=== PATIENT | male | born 1985 | race Caucasian/White ===

== ENCOUNTER 2017-05-17 11:40 | Emergency (ER) | payer OTHER ==
[~2017-05-17] VITALS: Ht 193 cm; Wt 124.9 kg
[~2017-05-17 11:40] MED LIST: ALBUAER19 INH; CHOL100027 PO; FLM4 PO; NIZA300C PO; OMEGCAP2 PO; ONDA4TAB7 SL; TRD10 PO; ULT50X PO; VITACAP26 PO
[2017-05-17 11:42] VITALS: Ht 193 cm; Wt 124.9 kg
[2017-05-17] MEDS ORDERED: VNTHFA/IN INH (12:26)
[2017-05-17] MEDS ORDERED: LISI10TA PO ×2 (12:26→12:27)
[2017-05-17] MEDS ORDERED: PRLSR20 PO (12:26)
[2017-05-17] MEDS ORDERED: ATOR-54 PO (12:26)
[2017-05-17] MEDS ORDERED: BUPR-79 PO (12:26)
[2017-05-17] MEDS ORDERED: MONT1TAB3 PO (12:27)
[2017-05-17] MEDS ORDERED: ATOR-24 PO (12:27)
[2017-05-17] MEDS ORDERED: MOME200A INH (12:27)
[2017-05-17] MEDS ORDERED: DiphenhydrAMINE HCL 50 MG/ML VIAL IV STA (13:14)
[2017-05-17] MEDS ORDERED: SODIUM CHLORIDE 0.9% 1000ML 1,000 ML IV STA (13:14)
[2017-05-17] MEDS ORDERED: PROCHLORPERAZINE 5 MG/ML 2 ML VIAL IV STA (13:14)
--- NOTE | 2017-05-17 13:20 | EMERGENCY ROOM VISIT NOTE ---
History First contact with patient: 13:04 Chief Complaint: HEADACHE Stated Complaint: MICHELE, NAUSEA, LIGHTHEADED History of Present Illness The patient is a 31 year old male who presents to the Emergency Room with complaints of headache. The patient developed a headache 1 week ago. The patient's states she noticed he has been stuttering intermittently for the last 3 days. The patient reports pain in the left side of the head, left side of the neck and occasional tingling in the left arm. He rates his discomfort a 2/10. He admits to nausea. He denies any fevers or chills. He denies any neck stiffness. Denies any pain in his chest or trouble breathing. He denies any abdominal pain or vomiting. The patient has a history of migraines but states this feels different. He does have history of hypertension and hyperlipidemia. He denies any other extremity numbness, tingling or weakness. Review of Systems A 10 system review of systems was completed with positives and pertinent negatives listed in the HPI. Past Medical/Surgical History Medical Problems: (1) Asthma (2) Bronchitis (3) HTN (hypertension) (4) PNA (pneumonia) Surgical Problems: (1) H/O knee surgery Family History FH: heart disease FH: lung disease FHx: cancer Hypertension Social History Smoking Status: Never Smoker Alcohol Use: none Drug Use: none Marital Status: Housing Status: lives with family Occupation Status: employed Current/Historical Medications Scheduled Atorvastatin (Lipitor), 40 MG PO HS Bupropion (Wellbutrin Sr), 150 MG PO BID Cholecalciferol (Vitamin D 1000 Unit), 1,000 INTER.UNIT PO DAILY Lisinopril (Prinivil), 10 MG PO DAILY Mometasone Furoate-Formoterol (Dulera 200/5 Mcg), 2 PUFFS INH BID Montelukast Sodium (Singulair), 10 MG PO HS Omeprazole (Prilosec), 20 MG PO DAILY Scheduled PRN Albuterol Hfa (Ventolin Hfa), 2-4 PUFFS INH Q6H PRN for SOB/Wheezing Allergies Coded Allergies: No Known Allergies (Unverified , 05/17/17) Physical Exam Vital Signs Date Time Temp Pulse Resp B/P (MAP) Pulse Ox O2 Delivery O2 Flow Rate FiO2 05/17/17 15:23 36.5 66 18 140/88 98 05/17/17 15:21 66 18 140/88 98 Room Air 05/17/17 13:54 90 136/90 97 Room Air 05/17/17 12:08 147/89 05/17/17 11:42 36.5 107 18 137/93 94 Room Air Physical Exam VITALS: Vitals are noted on the nurse's note and reviewed by myself. Vital signs stable. The patient is afebrile. GENERAL: This is a 31-year-old male, in no acute distress, nondiaphoretic, well- developed well-nourished. SKIN: The skin was without rashes, erythema, edema, or bruising. There is no tenting of the skin. Capillary reflex less than 2 seconds. HEAD: Normocephalic atraumatic. EARS: External auditory canals clear, tympanic membranes pearly iniguez without erythema or effusion bilaterally. EYES: Pupils equal round and reactive to light and accommodation. Conjunctivae without injection, sclerae without icterus. Extraocular movements intact. NOSE: Patent, turbinates without inflammation or discharge. No sinus tenderness. MOUTH: Mucous membranes moist. Tonsils are not enlarged. Pharynx without erythema or exudate. Uvula midline. Airway patent. Tongue does not deviate. NECK: Supple without nuchal rigidity. No lymphadenopathy. No thyromegaly. Cervical spine is nontender. Mild tenderness to palpation to the left paraspinous muscles. No JVD. HEART: Regular rate and rhythm without murmurs gallops or rubs. LUNGS: Clear to auscultation bilaterally without wheezes, rales or rhonchi. No retractions or accessory muscle use. ABDOMEN: Positive bowel sounds x 4. Soft, nontender, without masses or organomegaly. MUSCULOSKELETAL: No muscle atrophy, erythema, or edema noted. Full range of motion without joint tenderness in all extremities. No tenderness to palpation. Normal gait. Strength 5/5 throughout. NEURO: Patient was alert and oriented to person place and time. Normal sensation to light and sharp touch. Deep tendon reflexes 2+ throughout. Cranial nerves II through XII grossly intact. Negative pronator drift. Heel-to -rothman testing and [id number]-ny-[id number] testing intact. No focal neurological deficits. Medical Decision & Procedures ER Provider Diagnostic Interpretation: CERVICAL SPINE CT CT DOSE: 551.61 mGycm HISTORY: headache, left side neck pain, left arm pain TECHNIQUE: Multiaxial CT images of the cervical spine were performed and reformatted in the sagittal and coronal plane without the use of contrast. COMPARISON: None. FINDINGS: No fractures. No subluxation. Prevertebral soft tissues and the C1-C2 interval are intact. No pneumothorax. No disc space narrowing. No central canal narrowing by CT technique. Levoscoliosis of the thoracic spine. IMPRESSION: No fractures within the cervical spine. HEAD CT NONCONTRAST CT DOSE: 788.63 mGycm HISTORY: Headache headache TECHNIQUE: Multiaxial CT images of the head were performed without the use of intravenous contrast. Comparison: None. Findings: The paranasal sinuses and mastoid air cells are clear. The calvarium and skull base are intact. The ventricles and sulci are within normal limits. There is no mass, hematoma, midline shift, or acute infarct. Impression: No acute intracranial abnormality. Laboratory Results 05/17/17 13:45 Red Blood Count 5.22, Mean Corpuscular Volume 86.4, Mean Corpuscular Hemoglobin 30.1, Mean Corpuscular Hemoglobin Concent 34.8, Mean Platelet Volume 9.7, Neutrophils (%) (Auto) 66.0, Lymphocytes (%) (Auto) 22.1, Monocytes (%) (Auto) 10.4, Eosinophils (%) (Auto) 0.8, Basophils (%) (Auto) 0.3, Neutrophils # (Auto ) 6.82, Lymphocytes # (Auto) 2.28, Monocytes # (Auto) 1.07, Eosinophils # (Auto ) 0.08, Basophils # (Auto) 0.03 05/17/17 13:45 Test 05/17/17 13:45 05/17/17 13:56 White Blood Count 10.32 K/uL (4.8-10.8) Red Blood Count 5.22 M/uL (4.7-6.1) Hemoglobin 15.7 g/dL (14.0-18.0) Hematocrit 45.1 % (42-52) Mean Corpuscular Volume 86.4 fL (80-100) Mean Corpuscular Hemoglobin 30.1 pg (25-34) Mean Corpuscular Hemoglobin Concent 34.8 g/dl (32-36) Platelet Count 252 K/uL (130-400) Mean Platelet Volume 9.7 fL (7.4-10.4) Neutrophils (%) (Auto) 66.0 % Lymphocytes (%) (Auto) 22.1 % Monocytes (%) (Auto) 10.4 % Eosinophils (%) (Auto) 0.8 % Basophils (%) (Auto) 0.3 % Neutrophils # (Auto) 6.82 K/uL (1.4-6.5) Lymphocytes # (Auto) 2.28 K/uL (1.2-3.4) Monocytes # (Auto) 1.07 K/uL (0.11-0.59) Eosinophils # (Auto) 0.08 K/uL (0-0.5) Basophils # (Auto) 0.03 K/uL (0-0.2) RDW Standard Deviation 41.6 fL (36.4-46.3) RDW Coefficient of Variation 13.1 % (11.5-14.5) Immature Granulocyte % (Auto) 0.4 % Immature Granulocyte # (Auto) 0.04 K/uL (0.00-0.02) Prothrombin Time 10.8 SECONDS (9.0-12.0) Prothromb Time International Ratio 1.0 (0.9-1.1) Activated Partial Thromboplast Time 25.5 SECONDS (21.0-31.0) Partial Thromboplastin Ratio 1.0 Anion Gap 6.0 mmol/L (3-11) Est Creatinine Clear Calc Drug Dose 129.9 ml/min Estimated GFR () 93.5 Estimated GFR (Non- 80.7 BUN/Creatinine Ratio 9.3 (10-20) Calcium Level 8.7 mg/dl (8.5-10.1) Total Bilirubin 0.5 mg/dl (0.2-1) Aspartate Amino Transf (AST/SGOT) 13 U/L (15-37) Alanine Aminotransferase (ALT/SGPT) 28 U/L (12-78) Alkaline Phosphatase 130 U/L (45-117) Troponin I < 0.015 ng/ml (0-0.045) Total Protein 6.7 gm/dl (6.4-8.2) Albumin 3.7 gm/dl (3.4-5.0) Globulin 3.0 gm/dl (2.5-4.0) Albumin/Globulin Ratio 1.2 (0.9-2) Urine Color DK YELLOW Urine Appearance CLOUDY (CLEAR) Urine pH 5.0 (4.5-7.5) Urine Specific [place] 1.030 (1.000-1.030) Urine Protein NEG (NEG) Urine Glucose (UA) NEG (NEG) Urine Ketones TRACE (NEG) Urine Occult Blood NEG (NEG) Urine Nitrite NEG (NEG) Urine Bilirubin NEG (NEG) Urine Urobilinogen NEG (NEG) Urine Leukocyte Esterase NEG (NEG) Urine WBC (Auto) 1-5 /hpf (0-5) Urine RBC (Auto) 0-4 /hpf (0-4) Urine Hyaline Casts (Auto) 1-5 /lpf (0-5) Urine Epithelial Cells (Auto) 5-10 /lpf (0-5) Urine Bacteria (Auto) NEG (NEG) Medications Administered Medications (Trade) Dose Ordered Sig/Kevin Route Start Time Stop Time Status Last Admin Dose Admin Sodium Chloride 1,000 ml @ 999 mls/hr Q1H1M STAT IV 05/17/17 13:14 05/17/17 14:14 DC 05/17/17 13:14 999 MLS/HR Prochlorperazine Edisylate (Compazine Inj) 10 mg NOW STAT IV 05/17/17 13:14 05/17/17 13:17 DC 05/17/17 13:52 10 MG Procedure The patient was monitored on a quality assurance monitor body. They maintained a normal sinus rhythm without ectopy. ECG Indication: nausea Rate (beats per minute): 68 Rhythm: normal sinus Findings: no acute ischemic change Comparison ECG Date: no prior available ED Course The patient was seen and examined. Previous visits were reviewed. The patient does not have a fever or leukocytosis. He does not have any significant electrolyte abnormalities. Troponin is not elevated. INR is 1.0. Urinalysis is negative. CT scan of the brain and cervical spine did not reveal any acute abnormality The patient was hydrated with normal saline. He was given 10 mg IV Compazine and 25 mg IV Benadryl. His pain resolved. The patient has a history of migraines. This one has been more persistent. The patient's stated he had episodes of stuttering 3 days ago. That has resolved. The patient has not had any fevers, leukocytosis, neck stiffness or nuchal rigidity to suggest meningitis. He does have some pain on the paraspinous muscles on the left side of the neck and some tingling in the left arm. This could represent a cervical radiculopathy and possibly tension headache. There is no acute abnormality on CT imaging. He does not have any neurologic deficit on examination. The patient's symptoms were completely resolved with Benadryl and Compazine. He should follow-up with his family doctor and neurology for further evaluation and management. He should return to the ER with any worsening symptoms. The case was discussed with Dr. Ling who agrees with the assessment and treatment plan Medical Decision DIFFERENTIAL DIAGNOSIS: Aortic dissection, myocarditis, pericarditis, cervical disc disease, costochondritis, herpes zoster, rib fracture, pleuritis, pneumonia , pulmonary embolus, tension pneumothorax, anxiety disorder, somatoform disorder , choledocholithiasis, status, esophagitis, esophageal spasm, esophageal reflux , esophageal rupture, pancreatitis, peptic ulcer disease, cardiac ischemia, ST elevation [place], acute coronary syndrome, arrhythmia, coronary artery vasospasm. vavular heart disease, coronary artery disease, head or neck trauma, cerebrovascular disorders, intracranial lesions, infection,transient ischemic attack (TIA), CVA, seizure, syncope, intracranial mass, intracranial bleeding and vestibular disorders, among others Impression Primary Impression: Migraine Additional Impression: Neck pain Departure Information Dispostion Home / Self-Care Condition [employer] Referrals Varghese Vogel M.D. (PCP) Patient Instructions My [facility] [place] Additional Instructions Rest. Resume your normal medications Return with fevers, neck stiffness, worsening symptoms. Otherwise, follow up with your family doctor for further evaluation and management. Problem Qualifiers
[2017-05-17 14:02] LABS: BASO % 0.3 %; BASO ABS # 0.03 K/uL (0-0.2); COMPLETE YES; EOS % 0.8 %; HEMATOCRIT 45.1 % (42-52); IG% 0.4 %; LYMPH % 22.1 %; LYMPH ABS # 2.28 K/uL (1.2-3.4); MEAN CELL VOLUME 86.4 fL (80-100); MEAN CORPUSCULAR HEMOGLOBIN 30.1 pg (25-34); MEAN CORPUSCULAR HGB CONC 34.8 g/dl (32-36); MEAN PLATELET VOLUME 9.7 fL (7.4-10.4); MONO % 10.4 %; PLATELET COUNT 252 K/uL (130-400); RED BLOOD COUNT 5.22 M/uL (4.7-6.1); WHITE BLOOD COUNT 10.32 K/uL (4.8-10.8)
[2017-05-17 14:07] LABS: URINE APPEARANCE CLOUDY (CLEAR); URINE BILIRUBIN NEG (NEG); URINE COLOR DK YELLOW; URINE NITRITE NEG (NEG); UROBILINOGEN NEG (NEG); ZZUR CULT IF INDIC CLEAN CATCH NO
[2017-05-17 14:09] LABS: MANUAL MICROSCOPIC REQUIRED? NO; REVIEW REQ? NO
[2017-05-17 14:10] LABS: PROTHROMBIN TIME (PATIENT) 10.8 SECONDS (9.0-12.0)
--- NOTE | 2017-05-17 14:23 | DIAGNOSTIC IMAGING REPORT ---
HEAD CT NONCONTRAST CT DOSE: 788.63 mGycm HISTORY: Headache headache TECHNIQUE: Multiaxial CT images of the head were performed without the use of intravenous contrast. Comparison: None. Findings: The paranasal sinuses and mastoid air cells are clear. The calvarium and skull base are intact. The ventricles and sulci are within normal limits. There is no mass, hematoma, midline shift, or acute infarct. Impression: No acute intracranial abnormality. Electronically signed by: Richard Hyde M.D. 05/17/2017 2:22 PM Dictated Date/Time: 05/17/2017 2:21 PM
[2017-05-17 14:44] LABS: ALT/SGPT 28 U/L (12-78); BLOOD UREA NITROGEN 11 mg/dl (7-18); BUN/CREATININE RATIO 9.3 (10-20); CALCIUM 8.7 mg/dl (8.5-10.1); CARBON DIOXIDE 26 mmol/L (21-32); CHLORIDE 109 mmol/L (98-107); GLUCOSE 92 mg/dl (70-99); POTASSIUM 3.7 mmol/L (3.5-5.1); SODIUM 141 mmol/L (136-145)
[2017-05-17 14:49] LABS: ALB/GLOB RATIO 1.2 (0.9-2); ALKALINE PHOSPHATASE 130 U/L (45-117); AST/SGOT 13 U/L (15-37)
--- NOTE | 2017-05-17 14:53 | DIAGNOSTIC IMAGING REPORT ---
CERVICAL SPINE CT CT DOSE: 551.61 mGycm HISTORY: headache, left side neck pain, left arm pain TECHNIQUE: Multiaxial CT images of the cervical spine were performed and reformatted in the sagittal and coronal plane without the use of contrast. COMPARISON: None. FINDINGS: No fractures. No subluxation. Prevertebral soft tissues and the C1-C2 interval are intact. No pneumothorax. No disc space narrowing. No central canal narrowing by CT technique. Levoscoliosis of the thoracic spine. IMPRESSION: No fractures within the cervical spine. Electronically signed by: Faustino Walters M.D. 05/17/2017 2:52 PM Dictated Date/Time: 05/17/2017 2:49 PM
[2017-05-17 15:23] VITALS: BP 140/88; PULSE 66; TEMP 36.5; O2SAT 98
== END 2017-05-17 15:24 | disposition home or self-care (01) ==
LOC: C.EDB 11:42
DX: G43.909 Migraine, unspecified, not intractable, without status migrainosus (principal); M54.2 Cervicalgia; R11.2 Nausea with vomiting, unspecified; R20.2 Paresthesia of skin; I10 Essential (primary) hypertension; E78.5 Hyperlipidemia, unspecified; J45.909 Unspecified asthma, uncomplicated; Z79.899 Other long term (current) drug therapy; Z87.01 Personal history of pneumonia (recurrent); Z87.09 Personal history of other diseases of the respiratory system; Z82.49 Family history of ischemic heart disease and other diseases of the circulatory system; Z83.6 Family history of other diseases of the respiratory system

== ENCOUNTER 2018-03-31 12:58 | Emergency (ER) | payer BC, OTHER ==
[~2018-03-31] VITALS: Ht 193 cm; Wt 129.0 kg
[~2018-03-31 12:58] MED LIST changes: -ALBUAER19 INH; +ATOR-24 PO; +BUPR-79 PO; -FLM4 PO; +LISI10TA PO; +MOME200A INH; +MONT1TAB3 PO; -NIZA300C PO; -OMEGCAP2 PO; -ONDA4TAB7 SL; +PRLSR20 PO; -TRD10 PO; -ULT50X PO; -VITACAP26 PO; +VNTHFA/IN INH
[2018-03-31 13:00] VITALS: TEMP 36.8; Ht 193 cm; Wt 129.0 kg
[2018-03-31 13:43] VITALS: O2SAT 92
[2018-03-31] MEDS ORDERED: LSN20 PO (13:49)
[2018-03-31] MEDS ORDERED: SODIUM CHLORIDE 0.9% 1000ML 1,000 ML IV STA ×2 (14:10→15:07)
[2018-03-31 14:23] LABS: BASO % 0.5 %; BASO ABS # 0.05 K/uL (0-0.2); HEMATOCRIT 47.4 % (42-52); HEMOGLOBIN 17.2 g/dL (14.0-18.0); IG# 0.06 K/uL (0.00-0.02); LYMPH % 23.5 %; LYMPH ABS # 2.46 K/uL (1.2-3.4); MEAN CELL VOLUME 83.5 fL (80-100); MEAN CORPUSCULAR HEMOGLOBIN 30.3 pg (25-34); MEAN CORPUSCULAR HGB CONC 36.3 g/dl (32-36); MEAN PLATELET VOLUME 9.2 fL (7.4-10.4); MONO % 5.2 %; MONO ABS # 0.54 K/uL (0.11-0.59); NEUT % 69.2 %; NEUT ABS # 7.25 K/uL (1.4-6.5); PLATELET COUNT 251 K/uL (130-400); RED CELL DISTRIBUTION WIDTH SD 38.8 fL (36.4-46.3); WHITE BLOOD COUNT 10.46 K/uL (4.8-10.8)
[2018-03-31 14:43] LABS: POTASSIUM 3.9 mmol/L (3.5-5.1); SODIUM 139 mmol/L (136-145)
[2018-03-31 14:48] LABS: AST/SGOT 20 U/L (15-37)
[2018-03-31 14:53] LABS: ALBUMIN 4.2 gm/dl (3.4-5.0); ALKALINE PHOSPHATASE 121 U/L (45-117); ALT/SGPT 35 U/L (12-78); BLOOD UREA NITROGEN 14 mg/dl (7-18); CARBON DIOXIDE 23 mmol/L (21-32); CREATININE 1.17 mg/dl (0.60-1.40); GLUCOSE 114 mg/dl (70-99); LIPASE 191 U/L (73-393); TOTAL PROTEIN 7.5 gm/dl (6.4-8.2)
--- NOTE | 2018-03-31 14:58 | DIAGNOSTIC IMAGING REPORT ---
CHEST 2 VIEWS ROUTINE HISTORY: 32 years-old Male palpitations acute cardiac palpitations COMPARISON: None available TECHNIQUE: PA and lateral views of the chest FINDINGS: Cardiomediastinal and hilar silhouettes are within normal limits. No pneumothorax, pleural effusion, focal airspace consolidation or overt pulmonary edema. The bones of the chest appear grossly intact. IMPRESSION: No acute process. The above report was generated using voice recognition software. It may contain grammatical, syntax or spelling errors. Electronically signed by: John Cade M.D. 03/31/2018 2:57 PM Dictated Date/Time: 03/31/2018 2:56 PM
--- NOTE | 2018-03-31 15:44 | EMERGENCY ROOM VISIT NOTE ---
ED Visit Note First contact with patient: 13:54 CHIEF COMPLAINT: Feeling jittery, chest cramps, palpitations, fatigue HISTORY OF PRESENTING ILLNESS: This is a 32-year-old male who presents to the emergency department with complaint of feeling jittery and like his heart is racing at times. He is also feeling more tired than usual. He states he started feeling this way yesterday. He states he has had some associated chest cramps in the left side of his chest, which have been constant since yesterday, nothing makes it better or worse, he has not tried any medications for the pain , currently rates as 2/10. He has also had some associated lightheadedness, but denies any syncope. He denies shortness of breath. He denies nausea or vomiting, denies abdominal pain, denies diarrhea or blood in stool. He denies any use of recreational drugs or stimulants. He denies any increased use of caffeine, stating he usually has 1 cup of coffee in the morning and 1-2 Pepsi throughout the day, and has not had more than this. He denies any use of energy drinks, pre-workout mixes, or herbal medications. He does note that he was working outside yesterday and did not drink very much fluids, he states it is possible he could be dehydrated. He does also have a history of anxiety and panic attacks, but states this feels different than any previous anxiety attacks that he has had in the past. REVIEW OF SYSTEMS: A complete 10 point review of systems was reviewed with the patient with pertinent positives and negatives as per history of present illness. All else were negative. PAST MEDICAL HISTORY: Reviewed in chart, see problem list below SOCIAL HISTORY: Lives at home. Denies tobacco use. ALLERGIES: No known allergies. PHYSICAL EXAM: CONSTITUTIONAL: Pleasant and cooperative. No acute distress. Mildly dehydrated , but otherwise well appearing and well nourished. HEENT: Normocephalic, atraumatic. Pupils equal, round and reactive to light, EOMI. TMs normal. Pharynx normal. Tacky mucous membranes. NECK: Supple, full active range of motion without discomfort. RESPIRATORY: Clear to auscultation bilaterally with no wheezing, crackles, rhonchi or stridor. Equal expansion bilaterally. CARDIOVASCULAR: Tachycardic. Regular rhythm with no murmurs, rubs or gallops. Normal peripheral perfusion. No edema. GASTROINTESTINAL: Soft, nontender, nondistended. No palpable masses or HSM. Bowel sounds present in all quadrants. MUSCULOSKELETAL: Full range of motion of all joints without discomfort. INTEGUMENTARY: No rash or other significant dermatologic conditions noted. NEUROLOGIC: Alert and oriented X 4 with normal affect. Cranial nerves II-XII grossly intact, no facial droop. No pronator drift. No focal neurologic deficits noted. Normal strength and sensation in all 4 extremities. Normal speech. Normal gait observed. Negative Romberg. ED COURSE AND MEDICAL DECISION MAKING: CC: Patient presenting with complaint of feeling jittery, chest cramps, palpitations, fatigue DIFFERENTIAL DIAGNOSIS: Includes, but not limited to dehydration, electrolyte abnormalities, orthostatic hypotension, vasovagal, cardiac dysrhythmia, musculoskeletal chest pain/costochondritis, anxiety, ACS, PE, pneumonia, among others. INTERPRETATION OF LABS: No leukocytosis, no anemia, no significant electrolyte abnormalities, normal renal function, normal liver enzymes and lipase. TSH normal. Troponin negative. D-dimer negative. IMAGIN view chest x-ray was reviewed by myself and read by radiologist and shows no acute cardiopulmonary disease by my interpretation. EKG: Shows sinus tachycardia with a rate of 101 bpm, voltage criteria for LVH, when compared to previous EKG from 05/17/2017 there is an increase in the heart rate by 33 bpm, no other notable changes by my interpretation. MEDICATION RECONCILIATION: I attest that I have personally reviewed the patient 's current medication list. INITIAL VITAL SIGNS REVIEW: I reviewed the patient's initial vital signs and interpret them as follows: T: Afebrile; BP: Hypertensive; HR: Tachycardic; RR : Within normal limits; Pulse Ox: Within normal limits on room air. Blood pressure screening: The patient was found to have an elevated blood pressure, which was felt to be situational. SUMMARY: Patient was evaluated at bedside, history and physical exam performed. Patient is alert and oriented, no acute distress, resting calmly in stretcher. Patient is noted to be mildly tachycardic, and he does appear to be somewhat dehydrated. EKG reviewed at bedside, no evidence for cardiac dysrhythmia. Orders were placed at bedside for labs, IV fluids for hydration, chest x-ray to evaluate for cardiopulmonary disease. Patient discussed with Dr. Cabrera, who agrees with my assessment and plan. Labs and imaging reviewed as above, unremarkable workup. Troponin and d-dimer are negative. I have low suspicion for PE and ACS. Orthostatic vital signs are positive by heart rate, patient was given 2 L IV fluid bolus for hydration. Tachycardia is now resolved. Patient reassessed multiple times throughout ED stay, patient states he is feeling much better after the IV fluids, and states his chest discomfort is resolved as well. He has remained stable. Patient was updated on all results and plan for discharge, he was encouraged to follow-up with his PCP for further management. Patient was also given strict return precautions should his symptoms worsen, he verbalized understanding. Patient was discharged home in stable condition and ambulatory. Problem List Medical Problems: (1) Asthma Status: Chronic (2) Bronchitis Status: Resolved (3) HTN (hypertension) Status: Chronic (4) PNA (pneumonia) Status: Resolved Surgical Problems: (1) H/O knee surgery Status: Resolved Current/Historical Medications Scheduled Atorvastatin (Lipitor), 40 MG PO HS Bupropion (Wellbutrin Sr), 150 MG PO BID Lisinopril (Lisinopril), 20 MG PO DAILY Mometasone Furoate-Formoterol (Dulera 200/5 Mcg), 2 PUFFS INH BID Montelukast Sodium (Singulair), 10 MG PO HS Omeprazole (Prilosec), 20 MG PO DAILY Scheduled PRN Albuterol Hfa (Ventolin Hfa), 2-4 PUFFS INH Q6H PRN for SOB/Wheezing Allergies Coded Allergies: No Known Allergies (Unverified , 03/31/18) Vital Signs Date Time Temp Pulse Resp B/P (MAP) Pulse Ox O2 Delivery O2 Flow Rate FiO2 03/31/18 18:02 76 18 134/101 96 03/31/18 17:47 79 03/31/18 16:31 66 20 133/89 98 Room Air 03/31/18 15:46 84 18 125/86 96 Room Air 03/31/18 14:25 87 115/71 94 Room Air 93 121/78 112 112/74 03/31/18 13:43 95 03/31/18 13:43 92 Room Air 03/31/18 13:00 36.8 116 20 146/96 95 Room Air Laboratory Results 03/31/18 13:40 Red Blood Count 5.68, Mean Corpuscular Volume 83.5, Mean Corpuscular Hemoglobin 30.3, Mean Corpuscular Hemoglobin Concent 36.3, Mean Platelet Volume 9.2, Neutrophils (%) (Auto) 69.2, Lymphocytes (%) (Auto) 23.5, Monocytes (%) (Auto) 5.2, Eosinophils (%) (Auto) 1.0, Basophils (%) (Auto) 0.5, Neutrophils # (Auto) 7.25, Lymphocytes # (Auto) 2.46, Monocytes # (Auto) 0.54, Eosinophils # (Auto) 0.10, Basophils # (Auto) 0.05 03/31/18 13:40 Test 03/31/18 13:40 White Blood Count 10.46 K/uL (4.8-10.8) Red Blood Count 5.68 M/uL (4.7-6.1) Hemoglobin 17.2 g/dL (14.0-18.0) Hematocrit 47.4 % (42-52) Mean Corpuscular Volume 83.5 fL (80-100) Mean Corpuscular Hemoglobin 30.3 pg (25-34) Mean Corpuscular Hemoglobin Concent 36.3 g/dl (32-36) Platelet Count 251 K/uL (130-400) Mean Platelet Volume 9.2 fL (7.4-10.4) Neutrophils (%) (Auto) 69.2 % Lymphocytes (%) (Auto) 23.5 % Monocytes (%) (Auto) 5.2 % Eosinophils (%) (Auto) 1.0 % Basophils (%) (Auto) 0.5 % Neutrophils # (Auto) 7.25 K/uL (1.4-6.5) Lymphocytes # (Auto) 2.46 K/uL (1.2-3.4) Monocytes # (Auto) 0.54 K/uL (0.11-0.59) Eosinophils # (Auto) 0.10 K/uL (0-0.5) Basophils # (Auto) 0.05 K/uL (0-0.2) RDW Standard Deviation 38.8 fL (36.4-46.3) RDW Coefficient of Variation 13.0 % (11.5-14.5) Immature Granulocyte % (Auto) 0.6 % Immature Granulocyte # (Auto) 0.06 K/uL (0.00-0.02) D-Dimer < 190 ug/L FEU (0-500) Anion Gap 10.0 mmol/L (3-11) Est Creatinine Clear Calc Drug Dose 134.1 ml/min Estimated GFR () 95.7 Estimated GFR (Non- 82.6 BUN/Creatinine Ratio 11.6 (10-20) Calcium Level 9.0 mg/dl (8.5-10.1) Magnesium Level 2.0 mg/dl (1.8-2.4) Total Bilirubin 0.5 mg/dl (0.2-1) Direct Bilirubin 0.1 mg/dl (0-0.2) Aspartate Amino Transf (AST/SGOT) 20 U/L (15-37) Alanine Aminotransferase (ALT/SGPT) 35 U/L (12-78) Alkaline Phosphatase 121 U/L (45-117) Troponin I < 0.015 ng/ml (0-0.045) Total Protein 7.5 gm/dl (6.4-8.2) Albumin 4.2 gm/dl (3.4-5.0) Lipase 191 U/L (73-393) Thyroid Stimulating Hormone (TSH) 1.430 uIu/ml (0.300-4.500) Medications Administered Medications (Trade) Dose Ordered Sig/Kevin Route Start Time Stop Time Status Last Admin Dose Admin Sodium Chloride 1,000 ml @ 999 mls/hr Q1H1M STAT IV 03/31/18 14:10 03/31/18 15:10 DC 03/31/18 14:27 999 MLS/HR Sodium Chloride 1,000 ml @ 999 mls/hr Q1H1M STAT IV 03/31/18 15:07 03/31/18 16:07 DC 03/31/18 15:29 999 MLS/HR Departure Information Impression Primary Impression: Dehydration Additional Impression: Chest wall pain Dispostion Home / Self-Care Condition GOOD Referrals Varghese Vogel M.D. (PCP) Patient Instructions ED Chest Pain Costochondritis, ED Dehydration, My [facility] Additional Instructions You have been treated in the Emergency Department for your chest pain and palpitations. Laboratory results and imaging studies have ruled out any emergent causes for your symptoms which would warrant admission or surgery. You have been treated for suspected dehydration. It is ESSENTIAL that you maintain adequate hydration with oral fluids! Some suggestions include: - Water is the IDEAL replacement for lost fluids. You should initially sip at the water to help facilitate increased intestinal absorption rate and to decrease the possibility of nausea/vomiting. - Carbohydrate/Electrolyte-Containing Drinks (i.e. Gatorade, Powerade, Pedialyte). All of these are good choices, but it is important to remember that all of these drinks contain a high concentration of sugar. - Popsicles, ice chips, and fruit juices are all other options. - My FAVORITE dehydration remedy is to mix a 1:1 solution of bottled Gatorade with bottled water. This dilution allows for a palatable flavor with added benefit of a reduction in the amount of sugar consumption. For pain control, you can use the following [id number] medicines (if >12 yo): - Regular strength (325mg/tab) Tylenol (acetaminophen) 2 tabs every 4-6 hours as needed. Do not exceed 10 tablets in a 24 hour period. Avoid taking more than 3000 mg of Tylenol per day. This includes any other sources of acetaminophen you may take on a regular basis. - Regular strength (200 mg/tab) Advil (ibuprofen) 3 tabs every 6-8 hours as needed. Do not exceed a dose of 2400 mg per day. You may also apply a heating pad to your chest for comfort. Drink plenty of fluids to stay well hydrated. Please follow-up with your Primary Care Provider in the next few days for reevaluation. Return to the emergency department for severe worsening pain, shortness of breath or inability to catch her breath, persistent nausea/vomiting, vomiting or coughing up blood, fevers > 101.5, severe dizziness or passing out, or any other concerns. Work Instructions Return To Work: 2 days Problem Qualifiers
[2018-03-31 18:02] VITALS: BP 134/101; PULSE 76; O2SAT 96
== END 2018-03-31 18:00 | disposition home or self-care (01) ==
LOC: C.EDB 12:59
DX: R07.89 Other chest pain (principal); E86.0 Dehydration; I10 Essential (primary) hypertension; J45.909 Unspecified asthma, uncomplicated